=== PATIENT | male | born 1985 | race Caucasian/White ===

== ENCOUNTER 2018-01-01 18:33 | Emergency (ER) | payer OTHER ==
[~2018-01-01] VITALS: Ht 182.9 cm; Wt 91.7 kg
[2018-01-01 18:36] VITALS: BP 114/81
[2018-01-01] MEDS ORDERED: KETOROLAC 30 MG/1 ML IM ONE (19:00)
[2018-01-01] MEDS ORDERED: KETOROLAC 30 MG/1 ML ONE ×2 (19:11→19:34)
== END 2018-01-01 19:43 | disposition home or self-care (01) ==
LOC: ED 19:30
DX: M94.0 Chondrocostal junction syndrome [Tietze] (principal)
CPT/HCPCS: 71101; 96372; 99284; J1885